=== PATIENT | female | born 1985 | race Caucasian/White ===

== ENCOUNTER 2017-11-14 17:44 | Emergency (ER) | payer OTHER, BC ==
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
[2017-11-14 18:06] VITALS: BP 137/92
== END 2017-11-14 18:40 | disposition home or self-care (01) ==
DX: M54.2 Cervicalgia (principal); V87.7XXA Person injured in collision between other specified motor vehicles (traffic), initial encounter